=== PATIENT | female | born 1950 | race Caucasian/White ===

== ENCOUNTER 2017-01-31 06:53 | Emergency (ER) | payer MEDICARE ==
[2017-01-31] MEDS ORDERED: IBUPROFEN 600 MG TABLET PO STA (07:44)
[2017-01-31] MEDS ORDERED: oxyCOD/ACETAMIN 5 MG/325 MG TABLET PO STA (07:45)
[2017-01-31] MEDS ORDERED: DEXAMETHASONE 10 MG/ML VIAL PO STA (07:45)
[2017-01-31] MEDS ORDERED: CHERRY SYRUP 10 ML UDC PO ONE (07:47)
[2017-01-31] MEDS ORDERED: oxyCOD/ACETAMIN 5 MG/325 MG TABLET PO ONE (07:47)
[2017-01-31] MEDS ORDERED: IBUPROFEN 600 MG TABLET PO ONE (07:47)
[2017-01-31] MEDS ORDERED: DEXAMETHASONE 10 MG/ML VIAL ONE (07:48)
== END 2017-01-31 07:58 | disposition home or self-care (01) ==
DX: M75.101 Unspecified rotator cuff tear or rupture of right shoulder, not specified as traumatic (principal); I10 Essential (primary) hypertension; E78.00 Pure hypercholesterolemia, unspecified
CPT/HCPCS: 99283; A9270

== ENCOUNTER 2017-06-14 10:14 | Outpatient (CLI) | payer MEDICARE | END 2017-06-14 10:15 | disposition home or self-care (01) | LOC: SC 10:14 | PROVIDERS: ATTEND Nurse Practitioner Family | DX: G47.8 Other sleep disorders (principal); G47.00 Insomnia, unspecified; R06.83 Snoring | CPT/HCPCS: 99203; G0463; 99212 ==

== ENCOUNTER 2017-07-22 20:28 | Outpatient (CLI) | payer MEDICARE | END 2017-07-22 20:29 | disposition home or self-care (01) | LOC: SC 20:28 | PROVIDERS: ATTEND Internal Medicine Pulmonary Disease | DX: G47.33 Obstructive sleep apnea (adult) (pediatric) (principal) | CPT/HCPCS: 95810 ==

== ENCOUNTER 2017-08-21 15:19 | Outpatient (CLI) | payer MEDICARE | END 2017-08-21 15:20 | disposition home or self-care (01) | LOC: SC 15:19 | PROVIDERS: ATTEND Nurse Practitioner Family | DX: G47.33 Obstructive sleep apnea (adult) (pediatric) (principal) | CPT/HCPCS: 99214; G0463; 99212 ==

== ENCOUNTER 2018-08-30 16:11 | Outpatient (CLI) | payer MEDICARE ==
--- NOTE | 2018-08-31 08:28 | Mammography Report ---
Reason: SCREENING MAMMO Procedure Date: 08/30/2018 Accession Number: [id number] / [id number] Procedure: MESSI - Screening Mammo w/Virgil CPT Code: FULL RESULT: EXAM: Screening Mammo w/Virgil DATE: 08/30/2018 4:47 PM CLINICAL HISTORY: Screening encounter. History of late childbearing. History of benign left breast lump removal. TECHNIQUE: Bilateral CC and MLO views were obtained. COMPARISON: 04/19/2016 through 05/01/2012. FINDINGS: The breasts demonstrate heterogeneously dense fibroglandular parenchyma bilaterally. There are coarse typically benign calcifications. No suspicious masses, clustered microcalcifications, or regions of architectural distortion are identified. IMPRESSION: Benign findings RECOMMENDATION: Routine annual screening unless otherwise clinically indicated. BIRADS CATEGORY 2: Benign findings STANDARD QUALIFYING STATEMENTS: 1. This examination was not reviewed with the aid of Computer-Aided Detection (CAD). 2. A negative or benign imaging report should not preclude biopsy if clinically suspicious findings are present. 3. Dense breasts may obscure an underlying neoplasm. 4. This examination was reviewed with the aid of 3D breast imaging (tomosynthesis).
== END 2018-08-30 16:12 | disposition home or self-care (01) ==
LOC: DI 16:11
PROVIDERS: ATTEND Internal Medicine
DX: Z12.31 Encounter for screening mammogram for malignant neoplasm of breast (principal)
CPT/HCPCS: 77063; 77067

== ENCOUNTER 2020-01-30 08:08 | Day surgery (SDC) | payer MEDICARE ==
[2020-01-30] MEDS ORDERED: ONDANSETRON 4 MG/2 ML VIAL IVP ONE (08:09)
[2020-01-30] MEDS ORDERED: fentaNYL 250 MCG/5 ML VIAL IVP ONE (08:09)
[2020-01-30] MEDS ORDERED: MIDAZOLAM 2 MG/2 ML VIAL IVP ONE (08:09)
[2020-01-30] MEDS ORDERED: LACTATED RINGERS 1,000 ML IV ONE (09:05)
[2020-01-30 11:26] VITALS: BP 124/70
== END 2020-01-30 08:09 | disposition home or self-care (01) ==
LOC: SDS 08:08
PROVIDERS: ATTEND Surgery
DX: Z12.11 Encounter for screening for malignant neoplasm of colon (principal); K57.30 Diverticulosis of large intestine without perforation or abscess without bleeding; K64.8 Other hemorrhoids; K64.4 Residual hemorrhoidal skin tags; Z86.010 Personal history of colon polyps
CPT/HCPCS: G0105; J3010; J7120

== ENCOUNTER 2020-02-13 10:42 | Outpatient (CLI) | payer MEDICARE ==
--- NOTE | 2020-02-14 07:27 | Mammography Report ---
BILATERAL DIGITAL SCREENING MAMMOGRAM 3D/2D: 02/13/2020 CLINICAL: Routine screening. Comparison is made to exams dated: 08/30/2018 mammogram, 04/19/2016 mammogram, 02/18/2015 mammogram, 01/29/2014 mammogram, 05/01/2012 mammogram, and 04/27/2010 mammogram - [facility]. There are scattered fibroglandular elements in both breasts. No significant masses, calcifications, or other findings are seen in either breast. There has been no significant interval change. IMPRESSION: NEGATIVE There is no mammographic evidence of malignancy. A 1 year screening mammogram is recommended. This exam was interpreted at Station ID: [id number]. NOTE: For mammograms, a report in lay terms will be sent to the patient. Approximately 15% of breast malignancies will not be visualized mammographically. In the management of a palpable breast mass, a negative mammogram must not discourage biopsy of a clinically suspicious lesion. Electronically Signed By: Felicita neal/karen:02/13/2020 11:45:23 ACR BI-RADS Category 1: Negative 3341F PARENCHYMAL PATTERN: (A) - The breast(s) demonstrate(s) scattered fibroglandular densities. BI-RADS CATEGORY: (1) - 1 RECOMMENDATION: (ANNUAL) - Recommend routine annual screening mammography. [id number] 1 year screening LATERALITY: (B)
== END 2020-02-13 10:43 | disposition home or self-care (01) ==
LOC: DI 10:42
PROVIDERS: ATTEND Internal Medicine
DX: Z12.31 Encounter for screening mammogram for malignant neoplasm of breast (principal)
CPT/HCPCS: 77063; 77067

== ENCOUNTER 2022-01-13 18:53 | Outpatient (CLI) | payer MEDICARE ==
[2022-01-13 16:14] LABS: BASOPHILS % (AUTO) 0.5 %; EOSINOPHILS # (AUTO) 0.1 10^3/uL (0.0-0.7); EOSINOPHILS % (AUTO) 1.4 %; HCT - HEMATOCRIT 43.6 % (37.0-47.0); HGB - HEMOGLOBIN 14.4 g/dL (12.0-16.0); LYMPHOCYTES # (AUTO) 1.4 10^3/uL (1.5-3.5); LYMPHOCYTES % (AUTO) 31.7 %; MEAN CORPUSCULAR HEMOGLOBIN 32.4 pg (27.0-31.0); MEAN PLATELET VOLUME 10.8 fL (7.9-10.8); MONOCYTES # (AUTO) 0.4 10^3/uL (0.0-1.0); MONOCYTES % (AUTO) 8.9 %; NEUTROPHILS # (AUTO) 2.5 10^3/uL (1.5-6.6); NEUTROPHILS % (AUTO) 57.3 %; PLT - PLATELET COUNT 233 10^3/uL (130-450); RED BLOOD COUNT 4.45 10^6/uL (4.20-5.40); RED CELL DISTRIBUTION WIDTH 12.1 % (12.0-15.0); WHITE BLOOD COUNT 4.4 x10^3/uL (4.8-10.8)
[2022-01-13 16:23] LABS: ALBUMIN 4.8 g/dL (3.2-5.5); ALBUMIN/GLOBULIN RATIO 1.7 (1.0-2.2); ALKALINE PHOSPHATASE 47 IU/L (42-121); ALT ALANINE AMINOTRANSFERASE 14 IU/L (10-60); AST ASPARTATE AMINOTRANSFERASE 19 IU/L (10-42); BILIRUBIN,TOTAL 0.5 mg/dL (0.2-1.0); BUN - BLOOD UREA NITROGEN 20 mg/dL (6-20); CALCIUM 9.3 mg/dL (8.5-10.3); CARBON DIOXIDE - CO2 26 mmol/L (21-32); CHLORIDE 101 mmol/L (101-111); CHOL/HDL RATIO 3.6 (<4.4); CHOLESTEROL 266 mg/dL; CREATININE 0.7 mg/dL (0.4-1.0); GFR - MDRD 82 (>89); GLUCOSE 101 mg/dL (70-100); HDL CHOLESTEROL 73 mg/dL; LDL CHOLESTEROL,CALCULATED 182 mg/dL; LDL/HDL RATIO 2.5 (<4.4); POTASSIUM 3.8 mmol/L (3.5-5.0); SODIUM 138 mmol/L (135-145); TOTAL PROTEIN 7.6 g/dL (6.7-8.2); TRIGLYCERIDES 54 mg/dL; VLDL CHOLESTEROL 11 mg/dL
[2022-01-13 20:36] LABS: ESTIMATED AVERAGE GLUCOSE 114 mg/dL (70-100); HEMOGLOBIN A1c% 5.6 % (4.27-6.07)
== END 2022-01-13 18:54 | disposition home or self-care (01) ==
LOC: LAB.R 18:53
PROVIDERS: ATTEND Internal Medicine
DX: Z00.00 Encounter for general adult medical examination without abnormal findings (principal); E78.5 Hyperlipidemia, unspecified; E03.9 Hypothyroidism, unspecified; R73.01 Impaired fasting glucose; M25.519 Pain in unspecified shoulder; Z86.010 Personal history of colon polyps
CPT/HCPCS: 80053; 80061; 83036; 83721; 84443; 85025

== ENCOUNTER 2023-05-09 15:00 | Outpatient (CLI) | payer MEDICARE ==
--- NOTE | 2023-05-10 10:44 | Mammography Report ---
BILATERAL DIGITAL SCREENING MAMMOGRAM 3D/2D: 05/09/2023 CLINICAL: Routine screening. Comparison is made to exams dated: 02/13/2020 mammogram, 03/08/2022 mammogram, 04/19/2016 mammogram, 08/02 mammogram, 02/18/2015 mammogram, and 01/29/2014 mammogram - [facility]. There are scattered areas of fibroglandular density in both breasts (category b / 25%-50% glandular t issue). No significant masses, calcifications, or other findings are seen in either breast. There has been no significant interval change. IMPRESSION: NEGATIVE There is no mammographic evidence of malignancy. A 1 year screening mammogram is recommended. Based on the Tyrer Cuzick model (a risk assessment model) the patients lifetime risk is 6.1% and her 10 year risk is 5.0%. According to the ACR, ACS, and NCCN guidelines, an annual breast MRI exam ayush g with mammogram is recommended if the patients lifetime risk is 20% or greater. This exam was interpreted at Station ID: [id number]. NOTE: For mammograms, a report in lay terms will be sent to the patient. Approximately 15% of breast malignancies will not be visualized mammographically. In the management of a palpable breast mass, a negative mammogram must not discourage biopsy of a clinically suspicious lesion. Electronically Signed By: Virgil dominguez/karen:05/09/2023 22:20:20 letter sent: No_Letter ACR BI-RADS Category 1: Negative 3341F PARENCHYMAL PATTERN: (A) - The breast(s) demonstrate(s) scattered fibroglandular densities. BI-RADS CATEGORY: (1) - 1 Mammogram [id number] 1 year screening LATERALITY: (B)
== END 2023-05-09 15:01 | disposition home or self-care (01) ==
LOC: DI 15:00
PROVIDERS: ATTEND Internal Medicine
DX: Z12.31 Encounter for screening mammogram for malignant neoplasm of breast (principal); R92.323 Mammographic fibroglandular density, bilateral breasts

== ENCOUNTER 2023-12-27 09:49 | Outpatient (CLI) | payer MEDICARE ==
--- NOTE | 2023-12-27 13:19 | MRI Report ---
PROCEDURE: Shoulder RT WO INDICATIONS: R SHOULDER PAIN TECHNIQUE: Noncontrast oblique coronal T2 fast spin echo with fat saturation, oblique sagittal T1 spin echo and T2 fast spin echo with fat saturation, axial T1 spin echo and T2 fast spin echo with fat saturation a nd 3-D gradient echo through the shoulder. COMPARISON: None. FINDINGS: Image quality: Excellent. Rotator cuff: High-grade partial articular sided tearing of the supraspinatus tendon at the distal i nsertion with delamination and retraction of articular sided fibers measuring up to 18 mm. There is a lso low-grade partial bursal surface fraying. No definite full-thickness tearing is seen. Articular s ided tearing since posteriorly to involve the anterior fibers infraspinatus tendon. Teres minor tendo n is intact. There is mild subscapularis tendinosis and low-grade partial articular sided tearing of the subscapularis tendon at the superior insertion. No significant rotator cuff muscle atrophy. Mild intramuscular edema is seen within the posterior belly and lateral belly of the deltoid muscles. Bones and bursae: No acute trabecular bone injury or fracture. High-grade partial thickness cartilage irregularity is seen throughout the majority of the glenohumeral joint with small marginal osteophyt es. Postsurgical changes from presumed prior acromioplasty. Moderate to severe degenerative changes a re seen at the acromioclavicular joint with subchondral cystic changes, subchondral edema, marginal o steophytes. There is a small amount of fluid in the subacromial/subdeltoid bursa. No significant zackary ohumeral effusion. Capsule and soft tissues: Diffuse labral degeneration and chronic degenerative tearing. Proximal bic eps long head tendon demonstrates moderate tendinosis. There is partial effacement of fat signal in t he rotator interval. The anterior band of the inferior glenohumeral ligament appears mildly thickened . IMPRESSION: 1.High-grade partial articular sided tearing of the supraspinatus tendon and the anterior infraspinat us tendon at the distal insertions with the patient and proximal retraction of articular sided fibers by up to 18 mm. There is superimposed low-grade partial bursal surface fraying chronic tendinosis. N o definite full-thickness tear. 2.Mild subscapularis tendinosis and low-grade partial articular sided tearing of the superior inserti on. 3.Increased T2-weighted signal at the posterior belly of the deltoid muscle is suspicious for a low-g rade strain. Linear hyperintense signal at the lateral belly of the deltoid may be related to a low-g rade strain or recent intramuscular injection. 4.Moderate proximal biceps long head tendinosis. 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 Diffuse labral degeneration and chronic degenerative tearing. 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 Postsurgical changes from suspected acro mioplasty. 7.Small submucosal subdeltoid bursal effusion or mild bursitis. 8.Partial effacement of the rotator interval fat and mild thickening of the inferior glenohumeral lig ament are nonspecific, but can be seen in the setting of the clinical syndrome of adhesive capsulitis . Reviewed by: Jonny Rutledge MD on 12/27/2023 1:17 PM PDT Approved by: Jonny Rutledge MD on 12/27/2023 1:17 PM PDT Station ID: [id number]
== END 2023-12-27 09:50 | disposition home or self-care (01) ==
LOC: DI 09:49
PROVIDERS: ATTEND Internal Medicine
DX: M75.111 Incomplete rotator cuff tear or rupture of right shoulder, not specified as traumatic (principal); M94.211 Chondromalacia, right shoulder; M19.011 Primary osteoarthritis, right shoulder; M67.921 Unspecified disorder of synovium and tendon, right upper arm

== ENCOUNTER 2023-12-27 09:51 | Outpatient (CLI) | payer MEDICARE ==
--- NOTE | 2023-12-27 13:11 | MRI Report ---
PROCEDURE: Cervical Spine WO INDICATIONS: PARESTHESIA, RADICUALR SYN OF UPPER LIMBS TECHNIQUE: Noncontrast sagittal T1 spin echo and T2 fast spin echo, sagittal STIR, foraminal oblique sagittal T2 fast spin echo, and axial gradient echo through the cervical spine. COMPARISON: None. FINDINGS: Image quality: Excellent. Alignment and Curvature: There is normal bony alignment. Bone Marrow: Marrow demonstrates normal overall signal. Spinal Cord: Visualized spinal cord has normal size and signal. No cerebellar tonsillar herniation. Paraspinous Soft Tissues: No paravertebral masses. Prevertebral soft tissues are normal in thicknes s. Discs: Mild disc desiccation is seen throughout the cervical spine. Small anterior osteophytes are se en without significant posterior osteophyte formation. C2-C3: No significant spinal canal stenosis or neuroforaminal narrowing. C3-C4: No significant spinal canal stenosis or neuroforaminal narrowing. C4-C5: No significant spinal canal stenosis or neuroforaminal narrowing. C5-C6: No significant spinal canal stenosis or neuroforaminal narrowing. C6-C7: No significant spinal canal stenosis or neuroforaminal narrowing. C7-T1: No significant spinal canal stenosis or neuroforaminal narrowing. IMPRESSION: No significant spinal canal stenosis or neuroforaminal narrowing is seen in the cervical spine. Reviewed by: Jonny Rutledge MD on 12/27/2023 1:09 PM PDT Approved by: Jonny Rutledge MD on 12/27/2023 1:09 PM PDT Station ID: [id number]
== END 2023-12-27 09:52 | disposition home or self-care (01) ==
LOC: DI 09:51
PROVIDERS: ATTEND Internal Medicine
DX: R20.2 Paresthesia of skin (principal); M54.12 Radiculopathy, cervical region; M75.111 Incomplete rotator cuff tear or rupture of right shoulder, not specified as traumatic; M94.211 Chondromalacia, right shoulder; M19.011 Primary osteoarthritis, right shoulder; M67.921 Unspecified disorder of synovium and tendon, right upper arm

== ENCOUNTER 2024-04-05 11:26 | Outpatient (CLI) | payer MEDICARE ==
[2024-04-05 11:39] LABS: BASOPHILS % (AUTO) 0.5 %; EOSINOPHILS # (AUTO) 0.1 10^3/uL (0.0-0.7); EOSINOPHILS % (AUTO) 2.5 %; HCT - HEMATOCRIT 41.6 % (37.0-47.0); HGB - HEMOGLOBIN 13.4 g/dL (12.0-16.0); LYMPHOCYTES # (AUTO) 1.6 10^3/uL (1.5-3.5); LYMPHOCYTES % (AUTO) 35.4 %; MEAN CORPUSCULAR HEMOGLOBIN 31.1 pg (27.0-31.0); MEAN CORPUSCULAR HGB CONC 32.2 g/dL (32.0-36.0); MEAN CORPUSCULAR VOLUME 96.5 fL (81.0-99.0); MEAN PLATELET VOLUME 9.9 fL (7.9-10.8); MONOCYTES # (AUTO) 0.4 10^3/uL (0.0-1.0); MONOCYTES % (AUTO) 9.8 %; NEUTROPHILS # (AUTO) 2.3 10^3/uL (1.5-6.6); NEUTROPHILS % (AUTO) 51.6 %; PLT - PLATELET COUNT 218 10^3/uL (130-450); RED BLOOD COUNT 4.31 10^6/uL (4.20-5.40); RED CELL DISTRIBUTION WIDTH 12.5 % (12.0-15.0); WHITE BLOOD COUNT 4.4 x10^3/uL (4.8-10.8)
[2024-04-05 11:58] LABS: ALBUMIN 4.3 g/dL (3.2-5.5); ALBUMIN/GLOBULIN RATIO 1.7 (1.0-2.2); ALKALINE PHOSPHATASE 47 IU/L (42-121); ALT ALANINE AMINOTRANSFERASE 12 IU/L (10-60); AST ASPARTATE AMINOTRANSFERASE 15 IU/L (10-42); BILIRUBIN,TOTAL 0.4 mg/dL (0.2-1.0); BUN - BLOOD UREA NITROGEN 18 mg/dL (6-20); CALCIUM 9.3 mg/dL (8.5-10.3); CARBON DIOXIDE - CO2 28 mmol/L (21-32); CHLORIDE 105 mmol/L (101-111); CHOL/HDL RATIO 3.9 (<4.4); CHOLESTEROL 220 mg/dL; CREATININE 0.6 mg/dL (0.6-1.3); GFR - MDRD 98 (>89); GLUCOSE 100 mg/dL (74-104); HDL CHOLESTEROL 57 mg/dL; LDL CHOLESTEROL,CALCULATED 150 mg/dL; LDL/HDL RATIO 2.6 (<4.4); POTASSIUM 4.2 mmol/L (3.5-4.5); SODIUM 139 mmol/L (135-145); TOTAL PROTEIN 6.8 g/dL (6.4-8.9); TRIGLYCERIDES 66 mg/dL; VLDL CHOLESTEROL 13 mg/dL
[2024-04-05 13:00] LABS: THYROID STIMULATING HORMONE 0.84 uIU/mL (0.34-5.60)
== END 2024-04-05 11:27 | disposition home or self-care (01) ==
LOC: LAB 11:26
DX: Z00.00 Encounter for general adult medical examination without abnormal findings (principal); R41.3 Other amnesia
CPT/HCPCS: 36415; 80053; 80061; 82607; 82746; 83721; 84439; 84443; 85025